=== PATIENT | male | born 2005 | race Caucasian/White ===

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

== ENCOUNTER 2023-11-16 16:51 | Emergency (ER) | payer OTHER, SELFPAY ==
--- NOTE | ~2023-11-16 | CT_ITS ---
EXAMINATION: CT HEAD WITHOUT CONTRAST CT FACIAL BONES WITHOUT CONTRAST CLINICAL INFORMATION: Consult. Left intraorbital/nasal pain and swelling. Headache. COMPARISON: None available. TECHNIQUE: Imaging was performed from the skull base to vertex without intravenous administration of contrast. In addition, helical noncontrast CT imaging was acquired through the facial bones and source images were reviewed along with axial reconstructions and sagittal and coronal MPRs. This CT examination was performed using dose optimization techniques as appropriate, variously including the following: *Automated exposure control. *Adjustment of mA and/or kV according to patient size (this includes techniques or standardized protocols for targeted exams where dose is matched to indication/reason for exam; i.e. extremities or head). *Use of iterative reconstruction technique. DLP: 873 mGy-cm FINDINGS: Head: There is no evidence of acute intracranial hemorrhage or edematous territorial infarction. Ni-white matter differentiation is preserved. There is no abnormal attenuation within the brain parenchyma. The ventricles are normal in morphology and size. No evidence for obstructive hydrocephalus. No abnormal mass effect or midline shift. No extra-axial fluid collections. No acute soft tissue or osseous abnormalities. Maxillofacial Bones: Age-indeterminate bilateral nasal bone fractures, some of which appear chronic in nature. Moderate soft tissue edema/hematoma along the left aspect of the nasal bone extending into the left premaxillary soft tissues. Moderate leftward nasal septal deviation with spurring. No evidence of additional maxillofacial bone fractures. The zygomatic arches remain intact. No evidence of mandibular or maxillary fracture. The mandibular condyles remain well-seated in their respective temporal articular grooves. Normal appearance of the intraconal and extraconal fat. No evidence of traumatic injury to the extraocular musculature or globes. Mild mucosal thickening of the paranasal sinuses. The mastoid air cells and middle ear cavities are clear. No layering fluid collections. Multifocal odontogenic enamel erosions. Periapical lucency associated with the maxillary left 2nd premolar. CT/CT facial bones wo IV con IMPRESSION: 1. No evidence of acute intracranial hemorrhage or edematous territorial infarction. 2. Age-indeterminate bilateral nasal bone fractures, some of which appear chronic in nature. Moderate soft tissue edema/hematoma along the left aspect of the nasal bone extending into the left premaxillary soft tissues. 3. No evidence of additional acute fracture of the maxillofacial bones. 4. Moderate multifocal odontogenic disease. Electronically signed by: Black Pan DO 11/16/2023 07:07 PM EDT RP
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
[2023-11-16 16:55] VITALS: BP 91/60; PULSE 91; RESP 18; TEMP 36.9; O2SAT 97; BMI 20.2
[2023-11-16] MEDS: Diphth,Pertus(ACell),Tet Adult 0.5 ML SYRINGE IM (17:06)
--- NOTE | 2023-11-16 17:12 | PC.NURSE ---
Visual acuity test 20/40 bilaterally.
== END 2023-11-16 18:13 | disposition left against medical advice (07) ==
PROVIDERS: Emergency Provider Emergency Medicine Emergency Medical Services
DX: S09.93XA Unspecified injury of face, initial encounter (principal); Y00.XXXA Assault by blunt object, initial encounter; Y93.89 Activity, other specified; Y92.9 Unspecified place or not applicable; Y99.9 Unspecified external cause status; Z23 Encounter for immunization
CPT/HCPCS: 70450; 70486; 90471; 90715; 99281; 99284